=== PATIENT | female | born 1985 | race Caucasian/White ===

== ENCOUNTER → 2017-07-18 09:39 | Outpatient (CLI) | payer BC, MEDICAID, SELFPAY ==
[2017-07-18 11:14] LABS: AST(SGOT) 57 U/L (15-37); Alanine Aminotransfer ALT/SGPT 122 U/L (13-56); Albumin, Serum 2.2 g/dL (3.2-5.0); Alkaline Phosphatase 213 U/L (45-117); Bilirubin, Direct < 0.05 mg/dL (0.00-0.30); Globulin 4.2 g/dL (2.2-4.2); Protein, Total 6.4 g/dL (6.4-8.2)
== END ==
PROVIDERS: Visit Provider Obstetrics & Gynecology
DX: O26.893 Other specified pregnancy related conditions, third trimester (principal); L29.9 Pruritus, unspecified; Z3A.35 35 weeks gestation of pregnancy
CPT/HCPCS: 36415; 80076

== ENCOUNTER 2017-07-27 05:20 | Inpatient (IN) | payer BC, MEDICAID, SELFPAY ==
[2017-07-21 12:47] VITALS: BMI 36.1
[2017-07-27] VITALS (23 sets, daily range): BP systolic 101–132; BP diastolic 44–68; PULSE 72–92; RESP 12–18; TEMP 36.4–37.3; O2SAT 95–99; BMI 36.1
[2017-07-27] MEDS: Lactated Ringers 1,000 ML 999 ML IV (05:50)
[2017-07-27 06:39] LABS: Absolute Lymphocyte Count 2.36 X10^3/ul (0.83-4.51); Absolute Neutrophil Count 6.5 X10^3/uL (2.0-7.7); Basophil# 0.02 X10^3/uL; Basophil% 0.2 % (0-1); Eosinophil# 0.16 X10^3/uL; Eosinophils% 1.6 % (0-5); Hematocrit 32.4 % (37-47); Hemoglobin 10.3 g/dl (12.0-15.0); Lymphocyte # 2.36 X10^3/ul (4.0); Lymphocyte % 23.9 % (19-41); Mean Corp Hgb Conc 31.8 g/gl (32-36); Mean Corpuscular Hgb 24.8 pg (27.0-32.0); Mean Corpuscular Volume 78.1 fL (81-99); Mean Platelet Vol. 11.9 fl (6.2-12.0); Monocyte# 0.79 X10^3/uL; Platelet Count 268 K/mm3 (150-450); RBC Distribution Width CV 14.5 % (11.6-14.6); RBC Distribution Width SD 41.6 fl (35.1-43.9); Red Blood Count 4.15 M/mm3 (4.2-5.4); White Blood Count 9.9 K/mm3 (4.4-11.0)
[2017-07-27 06:40] LABS: POSITIVE COUNT NO; POSITIVE DIFFERENTIAL NO; POSITIVE MORPHOLOGY NO
[2017-07-27] MEDS: Sodium Citrate/Citric Acid 30 ML UDC PO (06:53)
[2017-07-27] MEDS: Lactated Ringers 1,000 ML 150 ML IV (06:53)
[2017-07-27] MEDS: Cefazolin 2 GM in 0.9% Normal Saline 100 ML IV (07:02)
[2017-07-27] MEDS: Oxytocin 30 units/NS 500 ml 30 UNITS/500 ML IV.SOLN 167 UNITS IV (07:40)
[2017-07-27] MEDS: Lactated Ringers 1,000 ML 100 ML IV ×2 (09:19→18:06)
[2017-07-27] MEDS: Ketorolac 30 MG/ML Syringe IV ×3 (12:38→23:40)
--- NOTE | 2017-07-27 13:53 | CPS ---
patient trying to sleep, does not want to start right now, instructed pt. on how to do and why
--- NOTE | 2017-07-27 14:10 | PCM.OP.BLANK ---
Operative Report Date of Procedure: 07/27/17 - repeat C/S 37 wk Cholestasis of PROCEDURE: Repeat C section Preoperative diagnosis: 37 wk EGA Prior C section deliveries Cholestasis of Postop diagnosis: 37 wk EGA Prior C section deliveries Cholestasis of Anesthesia: Spinal per Reese Holcomb CRNA Surgeon: Elodia Rodríguez MD Face Hardener: MANJU Cervantes EBL 600 cc Complications: none Drains: Mcdonough draining clear yellow urine Fluids: replacement LR Findings: At amniotomy, clear fluid was noted. Veliz viable male in vertex presentation with cord around neck x three, reduced at delivery . Apgars 9/9, Baby weight: 6# 4 oz There was a normal appearing uterus, fallopian tubes and ovaries bilaterally. Dense adhesions noted within layers of anterior abdominal wall. PATH: Cord gases Narrative account: After the risks, benefits and alternatives of the procedure were reviewed with the patient, informed consent was obtained. The patient was taken to the Operating room with an IV running . She was positioned on the operating table in a seated position and a spinal was placed. Once the spinal was placed she was positioned in dorsal supine position with leftward displacement of the uterus , and prepped and draped in the usual sterile fashion. Once the spinal was deemed adequate, a Pfannenstiel skin incision was created using the knife . The incision was carried down to the rectus fascia using the knife. The fascia was nicked in the midline. The fascial incision was extended bilaterally using curved Lisa scissors. The superior aspect of the fascial incision was grasped with Daniel clamps and tented up and the underlying rectus abdominal muscles were dissected free. In a similar manner, the inferior aspect of the facial incision was grasped with Daniel clamps tented up and the underlying rectus abdominal muscles were dissected free. The rectus abdominis muscles were divided by blunt dissection and sharp dissection in the midline by initially tenting up the muscle in the midline with Augustina clamps and then entering the peritoneum by sharp dissection. The rectus abdominis muscles and peritoneal incision were incised in the midline by Lisa scissors, and then stretched laterally and a bladder blade was inserted. A bladder flap was created with Metzenbaum scissors and the bladder blade was removed and reinserted. The uterine incision was then created using Metzenbaum scissors. The uterine incision was extended by blunt dissection in a caudad- cephalad orientation using the b operator's fingertips. Clear fluid was noted at amniotomy. The Vertex was then delivered. followed by the shoulders. The shoulders and rest of the body delivered easily. Nuchal cord x three was reduced at delivery. The OP and nares were bulb suctioned on the abdomen. The cord was clamped x two and cut and the baby was shown briefly to his parents and then passed off to the nurse awaiting delivery . The baby had a spontaneous vigorous cry and good tone . The umbilical cord was doubly clamped. The placenta was then delivered and set aside . The uterus was exteriorized and cleared of clots and debris . The uterine incision was repaired with 1 Vicryl in a running locked fashion. A second imbricating layer was placed along the incision using 1 Monocryl. Excellent hemostasis was noted except for some oozing at the R uterine angle. This area was oversewn with a horizontal mattress stitch of 1-0 vicryl. The uterus, fallopian tubes and ovaries were then inspected and returned to the abdominal cavity. The gutters were cleared of clots and debris. The uterine incision and fallopian tubes were again inspected. And excellent hemostasis was noted. Jose was applied to the uterine incision to assure continued hemostasis. The rectus abdominis and peritoneal edges were reapproximated in the midline with interrupted vertical mattress stitches of 1 Vicryl . Excellent hemostasis was noted at the subfascial space The fascia was closed in a running nonlocked fashion with barbed PDS suture (Stratafix). The Subcutaneous fatty tissue was Bovie cauterized as needed for hemostasis. This layer was then dusted with Jose and reapproximated with a nonlocked running 3-0 Vicryl. The skin edges were closed in a Subcuticular stitch of 4-0 Monocryl. The incision was cleansed. Seri-strips, and a Mepilex dressing were applied. The patient was then transferred to the recovery room bed in stable condition after tolerating the procedure well. Sponge, lap, needle and instrument counts correct times two. Medications given preop and intraoperatively included: Ancef two grams IV was given director of publications to the operating room. The patient also received Pitocin given IV after cord clamp, and Toradol 30 mg IV after cord clamp. For a complete listing of medications given preop and intraoperatively, please see the anesthesia record.
--- NOTE | 2017-07-27 14:19 | OP.PCM_ITS ---
Operative Report Date of Procedure: 07/27/17 - repeat C/S 37 wk Cholestasis of PROCEDURE: Repeat C section Preoperative diagnosis: 37 wk EGA Prior C section deliveries Cholestasis of Postop diagnosis: 37 wk EGA Prior C section deliveries Cholestasis of Anesthesia: Spinal per Reese Holcomb CRNA Surgeon: Elodia Rodríguez MD Candy Forming Machine Operator: MANJU Cervantes EBL 600 cc Complications: none Drains: Mcdonough draining clear yellow urine Fluids: replacement LR Findings: At amniotomy, clear fluid was noted. Veliz viable male in vertex presentation with cord around neck x three, reduced at delivery . Apgars 9/9, Baby weight: 6# 4 oz There was a normal appearing uterus, fallopian tubes and ovaries bilaterally. Dense adhesions noted within layers of anterior abdominal wall. PATH: Cord gases Narrative account: After the risks, benefits and alternatives of the procedure were reviewed with the patient, informed consent was obtained. The patient was taken to the Operating room with an IV running . She was positioned on the operating table in a seated position and a spinal was placed. Once the spinal was placed she was positioned in dorsal supine position with leftward displacement of the uterus , and prepped and draped in the usual sterile fashion. Once the spinal was deemed adequate, a Pfannenstiel skin incision was created using the knife . The incision was carried down to the rectus fascia using the knife. The fascia was nicked in the midline. The fascial incision was extended bilaterally using curved Lisa scissors. The superior aspect of the fascial incision was grasped with Dnaiel clamps and tented up and the underlying rectus abdominal muscles were dissected free. In a similar manner, the inferior aspect of the facial incision was grasped with Daniel clamps tented up and the underlying rectus abdominal muscles were dissected free. The rectus abdominis muscles were divided by blunt dissection and sharp dissection in the midline by initially tenting up the muscle in the midline with Augustina clamps and then entering the peritoneum by sharp dissection. The rectus abdominis muscles and peritoneal incision were incised in the midline by Lisa scissors, and then stretched laterally and a bladder blade was inserted. A bladder flap was created with Metzenbaum scissors and the bladder blade was removed and reinserted. The uterine incision was then created using Metzenbaum scissors. The uterine incision was extended by blunt dissection in a caudad- cephalad orientation using the extractor operator solvent process's fingertips. Clear fluid was noted at amniotomy. The Vertex was then delivered. followed by the shoulders. The shoulders and rest of the body delivered easily. Nuchal cord x three was reduced at delivery. The OP and nares were bulb suctioned on the abdomen. The cord was clamped x two and cut and the baby was shown briefly to his parents and then passed off to the nurse awaiting delivery . The baby had a spontaneous vigorous cry and good tone . The umbilical cord was doubly clamped. The placenta was then delivered and set aside . The uterus was exteriorized and cleared of clots and debris . The uterine incision was repaired with 1 Vicryl in a running locked fashion. A second imbricating layer was placed along the incision using 1 Monocryl. Excellent hemostasis was noted except for some oozing at the R uterine angle. This area was oversewn with a horizontal mattress stitch of 1-0 vicryl. The uterus, fallopian tubes and ovaries were then inspected and returned to the abdominal cavity. The gutters were cleared of clots and debris. The uterine incision and fallopian tubes were again inspected. And excellent hemostasis was noted. Jose was applied to the uterine incision to assure continued hemostasis. The rectus abdominis and peritoneal edges were reapproximated in the midline with interrupted vertical mattress stitches of 1 Vicryl . Excellent hemostasis was noted at the subfascial space The fascia was closed in a running nonlocked fashion with barbed PDS suture (Stratafix). The Subcutaneous fatty tissue was Bovie cauterized as needed for hemostasis. This layer was then dusted with Jose and reapproximated with a nonlocked running 3- 0 Vicryl. The skin edges were closed in a Subcuticular stitch of 4-0 Monocryl. The incision was cleansed. Seri-strips, and a Mepilex dressing were applied. The patient was then transferred to the recovery room bed in stable condition after tolerating the procedure well. Sponge, lap, needle and instrument counts correct times two. Medications given preop and intraoperatively included: Ancef two grams IV was given occupational safety specialist to the operating room. The patient also received Pitocin given IV after cord clamp, and Toradol 30 mg IV after cord clamp. For a complete listing of medications given preop and intraoperatively, please see the anesthesia record.
--- NOTE | 2017-07-27 14:19 | PCM.DCCSEC ---
Discharge Diet: No Restrictions Discharge Activity: May not drive while taking narcotic pain medications., May Shower, May Take a Tub Bath May resume sexual activity in: 4-6 weeks Lifting Restrictions: 20 pounds Additional Activity Instructions:: Nothing in the vagina for 4-6 weeks. You may return to work/school in 6 weeks. Change Dressing in (Days):: 14 Remove Dressing in (days):: 14 Cleanse incision/area with: Soap & Water, Keep Dressing Clean & Dry Additional Instructions: If you experience any of the following, contact your healthcare provider. Bleeding that soaks a pad every hour for 2 hours Fever 100.4 or higher Unrelieved incision or abdominal pain Swelling, redness, discharge or bleeding from your incision Problems urinating (including inability to urinate or burning while urinating). Visual changes Severe headache Flu-like symptoms Pain or redness in one of both of your breasts Pain, warmth, tenderness or swelling in your legs, especially the calf area Frequent nausea and vomiting Symptoms of depression or anxiety If you experience any of the following, call 911 or go to the nearest Emergency Room. Chest pain Problems breathing Seizure activity Partial or complete paralysis of a body part, slurred speech, weakness or drooping of the face, or a sudden inability to walk or hold your balance Allergies/Adverse Reactions: Allergies No Known Allergies Allergy (Verified 07/27/17 05:38) Medications to take at Discharge Naproxen [Naprosyn] 250 - 500 mg PO Q8H PRN PRN #30 tab 07/27/17 Oxycodone [Oxyir] 5 - 10 mg PO Q4H PRN PRN 7 Days #28 tab 07/27/17 Senna/Docusate Sodium [Senokot-S] 1 tab PO DAILY PRN #30 tab 07/27/17 The following prescriptions were given: Oxycodone [Oxyir] 5 - 10 mg PO Q4H PRN PRN 7 Days #28 tab PRN Reason: Mod-Severe Pain (4-10/10) Naproxen [Naprosyn] 250 - 500 mg PO Q8H PRN PRN #30 tab PRN Reason: Mild Pain (1-3/10) Senna/Docusate Sodium [Senokot-S] 1 tab PO DAILY PRN #30 tab PRN Reason: Constipation Orders to be completed after discharge: Electric breast pump Time Frame: 1 Year, Location: None Selected Follow-Up: Call to make an appointment with your doctor for an incision check in 1-2 weeks. You will also need a 6 week post- follow up appointment. Please Follow Up With: Gab Colon MD - [phone] When: Call to make an appointment for an incision check in 1 weeks.
--- NOTE | 2017-07-27 14:38 | DCINST_ITS ---
Discharge Diet: No Restrictions Discharge Activity: May not drive while taking narcotic pain medications., May Shower, May Take a Tub Bath May resume sexual activity in: 4-6 weeks Lifting Restrictions: 20 pounds Additional Activity Instructions:: Nothing in the vagina for 4-6 weeks. You may return to work/school in 6 weeks. Change Dressing in (Days):: 14 Remove Dressing in (days):: 14 Cleanse incision/area with: Soap & Water, Keep Dressing Clean & Dry Additional Instructions: If you experience any of the following, contact your healthcare provider. * Bleeding that soaks a pad every hour for 2 hours * Fever 100.4 or higher * Unrelieved incision or abdominal pain * Swelling, redness, discharge or bleeding from your incision * Problems urinating (including inability to urinate or burning while urinating) . * Visual changes * Severe headache * Flu-like symptoms * Pain or redness in one of both of your breasts * Pain, warmth, tenderness or swelling in your legs, especially the calf area * Frequent nausea and vomiting * Symptoms of depression or anxiety If you experience any of the following, call 911 or go to the nearest Emergency Room. * Chest pain * Problems breathing * Seizure activity * Partial or complete paralysis of a body part, slurred speech, weakness or drooping of the face, or a sudden inability to walk or hold your balance Allergies/Adverse Reactions: Allergies No Known Allergies Allergy (Verified 07/27/17 05:38) Medications to take at Discharge Naproxen [Naprosyn] 250 - 500 mg PO Q8H PRN PRN #30 tab 07/27/17 Oxycodone [Oxyir] 5 - 10 mg PO Q4H PRN PRN 7 Days #28 tab 07/27/17 Senna/Docusate Sodium [Senokot-S] 1 tab PO DAILY PRN #30 tab 07/27/17 The following prescriptions were given: Oxycodone [Oxyir] 5 - 10 mg PO Q4H PRN PRN 7 Days #28 tab PRN Reason: Mod-Severe Pain (4-1010) Naproxen [Naprosyn] 250 - 500 mg PO Q8H PRN PRN #30 tab PRN Reason: Mild Pain (1-3/10) Senna/Docusate Sodium [Senokot-S] 1 tab PO DAILY PRN #30 tab PRN Reason: Constipation Orders to be completed after discharge: Electric breast pump Time Frame: 1 Year, Location: None Selected Follow-Up: Call to make an appointment with your doctor for an incision check in 1-2 weeks. You will also need a 6 week post- follow up appointment. Please Follow Up With: Gab Colon MD - [phone] When: Call to make an appointment for an incision check in 1 weeks.
[2017-07-28] VITALS (7 sets, daily range): BP systolic 111–120; BP diastolic 44–58; PULSE 86–100; RESP 16–20; TEMP 36.9–37.4; O2SAT 96–97
[2017-07-28] MEDS: Ketorolac 30 MG/ML Syringe IV ×3 (05:40→18:46)
[2017-07-28 06:08] LABS: Hematocrit 31.1 % (37-47); Hemoglobin 9.6 g/dl (12.0-15.0); Mean Corp Hgb Conc 30.9 g/gl (32-36); Mean Corpuscular Hgb 24.2 pg (27.0-32.0); Mean Corpuscular Volume 78.5 fL (81-99); Mean Platelet Vol. 12.2 fl (6.2-12.0); Platelet Count 198 K/mm3 (150-450); RBC Distribution Width CV 14.6 % (11.6-14.6); RBC Distribution Width SD 40.6 fl (35.1-43.9); Red Blood Count 3.96 M/mm3 (4.2-5.4); Scan Indicated on CBC? Y/N NO; White Blood Count 8.9 K/mm3 (4.4-11.0)
--- NOTE | 2017-07-28 08:02 | PCM.PN.OB ---
Subjective: POD#1 Repeat C/S at 37 wk, cholestasis of Doing well. Breast feeding. breakfast tray waiting on her. Pain control adequate, but notes pain superior to medial aspect of R knee. SCDs in place. - Physical Exam General: Alert, Oriented x3, Cooperative, No apparent distress HEENT: Atraumatic Neck: Supple Abdomen: Soft - Fundus firm NT at 2-3 cm inferior to umblicus Extremities: No clubbing, No cyanosis, No edema - No redness noted at R knee, no edema. no palpable cords. minimally tender to palpation. Skin: Incision - Mepilex CDI. No shadow drainage. Neurological: Cranial nerves II-XII grossly intact Psych/Mental Status: Normal Affect Vital Signs Temp Pulse Resp BP Pulse Ox 99.2 F H 90 20 H 116/58 L 97 07/28/17 07:35 07/28/17 07:35 07/28/17 07:35 07/28/17 07:35 07/28/17 05:49 Oxygen Delivery Method Room Air Weight: 92.5 kg Body Mass Index (BMI) 36.1 Intake and Output for Last 24 Hours 02/18 //18 07/28/17 23:59 23:59 23:59 Intake Total 4258 / 4258 Output Total 2800 / 2800 550 / 550 Balance 1458 / 1458 -550 / -550 Laboratory Tests Past 24 Hrs 07/28/17 05:45 WBC 8.9 RBC 3.96 L Hgb 9.6 L Hct 31.1 L MCV 78.5 L MCH 24.2 L MCHC 30.9 L RDW 14.6 RDW Differential 40.6 Plt Count 198 MPV 12.2 H Assessment/Plan POD#1 Repeat C/S at 37 wk for cholestasis of . Stable postop. Inc diet and activity as tolerated. S/L IV for continued toradol. D/C ramirez for voiding trial Continue care L knee pain: not at all suspicious for DVT Musculoskeletal source likely. Heating pad, shower, tylenol, toradol prn for pain. Movement / stretching recommended also.
[2017-07-28] MEDS: 0.9% Saline Lock 10 ML Syringe IV ×3 (08:33→18:47)
[2017-07-28] MEDS: oxyCODONE 5 MG Tablet PO ×3 (09:12→22:17)
[2017-07-28] MEDS: Ferrous Sulfate 300 MG/5 ML UDC PO (13:17)
--- NOTE | 2017-07-28 20:52 | NURSING ---
Addendum entered by Claudia Rivers 07/28/17 20:54: Original Note: Addendum entered by Claudia Rivers 07/28/17 20:53: Original Note: reporting up to bathroom and voided numerous times but not measured
[2017-07-28] MEDS: Senna/Docusate Sodium 1 Tablet PO (22:17)
[2017-07-29] MEDS: Ketorolac 30 MG/ML Syringe IV ×2 (00:50→06:36)
[2017-07-29] MEDS: 0.9% Saline Lock 10 ML Syringe IV ×2 (00:53→06:35)
[2017-07-29 01:00] VITALS: BP 132/54; PULSE 84; RESP 18; TEMP 37.2
[2017-07-29] MEDS: oxyCODONE 5 MG Tablet PO (04:43)
--- NOTE | 2017-07-29 07:56 | PCM.PN.OB ---
Subjective: POD#2 Repeat C/S 37 wk Cholestasis of Doing well. wants to go home today. Milk not quite in, baby cluster fed last night. Pain control adequate. Up to shower yesterday, and OOB several times and tolerated well. - Physical Exam General: Alert, Oriented x3, Cooperative, No apparent distress HEENT: Atraumatic Neck: Supple Abdomen: Soft - Fundus firm NT at approx 2 cm inferior to umbilicus Skin: Incision - Mepilex CDI. no shadow drainage Vital Signs Temp Pulse Resp BP Pulse Ox 99.0 F 84 18 132/54 H 96 /07/17 01:00 07/29/17 01:00 07/29/17 01:00 07/29/17 01:00 07/28/17 19:52 Oxygen Delivery Method Room Air Weight: 92.5 kg Body Mass Index (BMI) 36.1 Intake and Output for Last 24 Hours 07/27/07/28/17 07/29/17 23:59 23:59 23:59 Intake Total 4258 / 4258 939 / 939 Output Total 2800 / 2800 1950 / 1950 Balance 1458 / 1458 -1011 / -1011 Assessment/Plan POD#2 Repeat C/S at 37 wk for cholestasis of . Stable postop. D/C home today per pt request. RTO as scheduled for postop check.
--- NOTE | 2017-07-29 07:59 | PCM.DC.SUM ---
Discharge Date and Diagnosis Date of Admission: 07/27/17 - 37 wk prior C/S planned repeat, cholestasis of Date of Discharge: 07/29/17 - same Hospital Course and Treatment Operations: - - Repeat LTCS Summary of Care Provided: The patient is a 31 year old F with h/o prior C/S delivery presents at 37 wk for repeat C/S due to cholestasis of . Also with iron deficiency anemia. Admitted for repeat C/S. C/S performed on 07/27/17. uncomplicated. Postop course uneventful. Acute blood loss anemia superimposed on iron deficiency anemia. Discharged home POD#2 per pt request. Discharge Diet: No Restrictions Discharge Activity: May not drive while taking narcotic pain medications., May Shower, May Take a Tub Bath May resume sexual activity in: 4-6 weeks Additional Activity Instructions:: Nothing in the vagina for 4-6 weeks. You may return to work/school in 6 weeks. Change Dressing in (Days):: 14 Remove Dressing in (days):: 14 Cleanse incision/area with: Soap & Water, Keep Dressing Clean & Dry Home Medications: Medications to take at Discharge Naproxen [Naprosyn] 250 - 500 mg PO Q8H PRN PRN #30 tab 07/27/17 Oxycodone [Oxyir] 5 - 10 mg PO Q4H PRN PRN 7 Days #28 tab 07/27/17 Senna/Docusate Sodium [Senokot-S] 1 tab PO DAILY PRN #30 tab 07/27/17 Following Prescrptions Were Given to Patient: Oxycodone [Oxyir] 5 - 10 mg PO Q4H PRN PRN 7 Days #28 tab PRN Reason: Mod-Severe Pain (4-10/10) Naproxen [Naprosyn] 250 - 500 mg PO Q8H PRN PRN #30 tab PRN Reason: Mild Pain (1-3/10) Senna/Docusate Sodium [Senokot-S] 1 tab PO DAILY PRN #30 tab PRN Reason: Constipation Other Amb Orders: Electric breast pump Time Frame: 1 Year, Location: None Selected Please Follow Up With: Gab Colon MD - [phone] When: Call to make an appointment for an incision check in 1 weeks. Meaningful Use Info Meaningful Use Diagnoses (Choose all that apply): None applicable
[2017-07-29 08:31] VITALS: BP 117/66; PULSE 92; RESP 16; TEMP 37.1
[2017-07-29] MEDS: Ferrous Sulfate 300 MG/5 ML UDC PO (09:32)
[2017-07-29] MEDS: Multivitamins,Therapeutic Tablet 1 TABLET PO (09:32)
== END 2017-07-29 12:00 | disposition home or self-care (01) | DRG 765 ==
PROVIDERS: Obstetrics & Gynecology; Admitting Provider Obstetrics & Gynecology; Visit Provider Obstetrics & Gynecology
DX: O26.62 Liver and biliary tract disorders in childbirth (principal); K83.1 Obstruction of bile duct; D62 Acute posthemorrhagic anemia; O99.02 Anemia complicating childbirth; O69.81X0 Labor and delivery complicated by cord around neck, without compression, not applicable or unspecified; Z3A.37 37 weeks gestation of pregnancy; Z37.0 Single live birth; D50.9 Iron deficiency anemia, unspecified; O34.219 Maternal care for unspecified type scar from previous cesarean delivery; O90.89 Other complications of the puerperium, not elsewhere classified; M25.562 Pain in left knee
CPT/HCPCS: 59050; 85025; 85027; 85610; 85730; 86850; 86900; 94762; 99218; J7120; A4216; G0378; J2405

== ENCOUNTER → 2019-06-06 16:29 | Outpatient (CLI) | payer MEDICAID, SELFPAY ==
[2017-07-27 05:40] VITALS: BMI 36.1
== END ==
PROVIDERS: Visit Provider Advanced Practice Midwife
DX: Z12.4 Encounter for screening for malignant neoplasm of cervix (principal); Z11.3 Encounter for screening for infections with a predominantly sexual mode of transmission

== ENCOUNTER → 2019-06-08 08:49 | Outpatient (CLI) | payer MEDICAID, SELFPAY ==
[2019-06-08 10:57] LABS: Absolute Lymphocyte Count 1.47 X10^3/uL (0.83-4.51); Basophil# 0.03 X10^3/uL; Basophil% 0.4 % (0-1); Color, Urine Yellow (Yellow); Eosinophil# 0.63 X10^3/uL; Eosinophils% 8.3 % (0-5); Glucose, Dipstick Normal (Normal); Hematocrit 40.7 % (37-47); Hemoglobin 13.4 g/dL (12.0-15.0); Ketone-Dipstick Negative (Negative); Leukocyte Esterase-Dipstick 25 /ul (Negative); Lymphocyte # 1.47 X10^3/ul (4.0); Lymphocyte % 19.4 % (19-41); Mean Corp Hgb Conc 32.9 g/dL (32-36); Mean Corpuscular Hgb 28.9 pg (27.0-32.0); Mean Corpuscular Volume 87.9 fL (81-99); Mean Platelet Vol. 10.8 fl (6.2-12.0); Monocyte# 0.39 X10^3/uL; Monocyte% 5.1 % (0-10); NRBC Flagged by Analyzer 0 % (0-5); Neutrophil # 5.04 X10^3/uL (2.7-7.7); Neutrophil % 66.4 % (47-70); Nitrite-Dipstick Negative (Negative); Occult Blood-Urine 10 /ul (Negative); Platelet Count 304 K/mm3 (150-450); Protein-Dipstick Negative (Negative); RBC Distribution Width CV 13.3 % (11.6-14.6); RBC Distribution Width SD 43.1 fl (35.1-43.9); Red Blood Count 4.63 M/mm3 (4.2-5.4); Urine Bilirubin Dipstick Negative (Negative); Urine Clarity Clear (Clear); Urine Urobilinogen Normal (Normal); White Blood Count 7.6 K/mm3 (4.4-11.0)
[2019-06-08 11:22] LABS: Amphetamine Urine VISTA NEGATIVE (<1000 ng/mL); Barbiturate Urine VISTA NEGATIVE (< 200 ng/mL); Benzodiazepine Urine VISTA NEGATIVE (< 200 ng/mL); Cocaine Urine VISTA NEGATIVE (< 300 ng/mL); Ecstacy Urine VISTA NEGATIVE (< 500 ng/mL); Methadone Urine VISTA NEGATIVE (< 300 ng/mL); PCP Urine VISTA NEGATIVE (< 25 ng/mL); THC Urine VISTA NEGATIVE (< 50 ng/mL); Vista UDS pH Range 5
[2019-06-08 11:30] LABS: Glucose Challenge Gest 1H 50g 87 mg/dL (70-140); Thyroid Stim Hormone (TSH) 0.56 uIU/mL (0.358-3.74)
[2019-06-08 11:57] LABS: HIV - WCH Non-Reactive (Nonreactive); Hepatitis B Surface Antigen Non-Reactive (Nonreactive); Hepatitis C Antibody Non-Reactive (Nonreactive); Rubella IgG 49.5 IU/mL
[2019-06-14 02:55] LABS: Prenatal RPR NONREACTIVE (NONREACTIVE)
== END ==
PROVIDERS: Visit Provider Advanced Practice Midwife
DX: Z34.81 Encounter for supervision of other normal pregnancy, first trimester (principal)
CPT/HCPCS: 36415; 80307; 81002; 82950; 84443; 85025; 86703; 86762; 86803; 87340

== ENCOUNTER → 2019-10-18 10:30 | Outpatient (CLI) | payer MEDICAID, SELFPAY ==
[2019-10-18 12:23] LABS: Glucose Challenge Gest 1H 50g 117 mg/dL (70-140)
[2019-10-18 12:29] LABS: Hematocrit 36.8 % (37-47); Hemoglobin 11.7 g/dL (12.0-15.0); Mean Corp Hgb Conc 31.8 g/dL (32-36); Mean Corpuscular Hgb 27.7 pg (27.0-32.0); Mean Corpuscular Volume 87.2 fL (81-99); Mean Platelet Vol. 11.6 fl (6.2-12.0); Platelet Count 316 K/mm3 (150-450); RBC Distribution Width CV 12.8 % (11.6-14.6); RBC Distribution Width SD 40.3 fl (35.1-43.9); Red Blood Count 4.22 M/mm3 (4.2-5.4); White Blood Count 8.3 K/mm3 (4.4-11.0)
== END ==
PROVIDERS: Visit Provider Obstetrics & Gynecology
DX: Z34.83 Encounter for supervision of other normal pregnancy, third trimester (principal)
CPT/HCPCS: 36415; 82950; 85027

== ENCOUNTER 2019-12-09 12:15 | Outpatient (CLI) | payer MEDICAID, SELFPAY ==
[2019-12-09 13:20] VITALS: BMI 36.8
[2019-12-09 13:45] VITALS: BP 120/68; PULSE 96; TEMP 36.9
[2019-12-09 14:34] LABS: AST(SGOT) 110 U/L (15-37); Alanine Aminotransfer ALT/SGPT 234 U/L (13-56); Albumin, Serum 2.1 g/dL (3.2-5.0); Alkaline Phosphatase 237 U/L (45-117); Bilirubin, Direct 0.14 mg/dL (0.00-0.30); Globulin 4.3 g/dL (2.2-4.2); Protein, Total 6.4 g/dL (6.4-8.2)
--- NOTE | 2019-12-09 14:51 | PN_ITS ---
Progress Note OB TRIAGE PHYSICIAN NOTE - Problem List (1) 35 weeks gestation of Status: Acute History of Present Illness Date of Service: 12/09/19 Was patient seen by the physician?: Yes Reason For Visit: RULE OUT CHOLESTASIS Final DAMARIS: 01/08/20 Final DAMARIS Source: US <20 weeks Gestational age: 35 Weeks and 5 Days History of Present Illness: 33yo at 35 5/7 weeks gestation sent in by triage phone nurse for c/o itching. Patient notes itching on hands, soles of feet and abdomen x 3 days. She has history of cholestasis during her last . Allergies No Known Allergies Allergy (Verified 07/27/17 05:38) - Pertinent Past Medical History Surgical History: Past Surgical History (Last Updated 12/09/19 @ 13:[address] Maria Alejandra Ling MD) Previous section 2011, 2012, 2016, 2017 Pertinent Past Medical History: DEL DATE GEST LAB WT LB WT OZ TYPE ANES LABOR TX OR COMPLICATIONS 05 Feb 02 40 20 7 1 VAVD Epidural No Julio Cesar Feb 03 41 8 7 0 Vag Epidural No Gweneviere Jan 05 40 8 7 0 Vag Epidural No Efrain Apr 08 40 8 6 14 Vag Epidural No, 2vc Sara Dec 08 40 0 8 0 C-Sec Epidural No, distress Sincere Feb 09 39 0 7 2 C-Sec Epidural No Floridalma Jul 16 39 0 6 0 C-Sec Spinal No Raziela Jul 17 36 0 6 15 C-Sec Spinal No Hang ANTEPARTUM FLOW CHART VISIT GE RTC FU F F MA U U DATE WK WKS HT PN HR M SS BP ED WT MA GL D EF ST __ ____ ___ __ __ ___ __ __ __ ___ __ __ __ ___ __ Oct CH 3 36 V + + 114/86 sl 205 tr - Oct CH 2 31 + + 110/80 sl 204 tr - October 24 JMW 3 28 + + 118/76 0 202 - - Sep 21 CH 3 + / 200 Sep 17 CH 4 on + 130/82 sl 200 tr - Jul 18 CH 2 + + 102/74 sl 197 - - Jun 14 KW 4 on ? 122/64 0 198 - - May 0 KW 4 on 100/60 0 192 - - labs: 1h GTT 117, RPR nr, HCV Ab neg, HBsAg neg, HIV nr, Rubella immune, O positive, Utox neg Review of Systems Constitutional: Denies: Chills, Fever, Fatigue Eyes: Denies: Vision Change HEENT: Denies: Head Aches, Visual Changes Cardiovascular: Denies: Chest Pain Respiratory: Denies: Shortness of Breath Gastrointestinal: Denies: Abdominal Pain, Nausea, Vomiting Gynecological: Reports: - - Good movement, rare contractions, denies leaking of fluid or vaginal bleeding Skin: Reports: Pruritis. Denies: Jaundice, Rash Neurological: Denies: Blurred vision, Double vision, Headaches Physical Exam Vitals: AVSS General: Alert, Oriented x3, Cooperative, No apparent distress HEENT: Atraumatic, Normocephalic, - - Anicteric Cardiovascular: Regular rate, Regular Rhythm, Normal S1, Normal S2 Lungs: Clear to auscultation, Normal air movement Abdomen: Soft, Non Tender, Non-Distended, Gravid Extremities:: No edema, No tenderness/swelling Neurological: Deep Tendon Reflexes 2+/4 and Symmetrical, Neuro grossly intact Estimated gestational size: Appropriate for gestational size Presentation: Cephalic NST - FHR Rate Baby A Baseline: 150 Variability:: Moderate Accelerations:: 15 x 15 Decelerations:: None NST Reactive:: Yes FHR Category:: Category I Uterine Activity:: 0-06/08 Impression/Plan 33YO at 35 5/7 weeks gestation with c/o itching, Cat I FHR -LFTs, bile acid fractionation profile Office Visits / Consults: [id number] OV L3 New STROKE Vital Signs/Narrative: Vital Signs Temp Pulse BP 12/09/19 13:45 98.4 F 96 120/68
--- NOTE | 2019-12-09 14:53 | OB.TRI.PN ---
Progress Notes Date of Service: 12/09/19 Progress Note: LFTs elevated, reviewed with patient findings and likely cholestasis. Rx Ursodiol. OTC Benadryl prn itching. Reviewed associated risk for stillbirth associated with increasing levels of bile acids. Await levels to determine delivery plan. Plan for twice weekly monitoring in interim. Discussed movement counts and si/sx requiring further attention. Patient and spouse given opportunity to ask questions and questions answered to their satisfaction. Laboratory Studies: Laboratory Tests 12/09/19 Range/Units 13:40 Total Bilirubin 0.20 (0.20-1.00) mg/dL Direct Bilirubin 0.14 (0.00-0.30) mg/dL AST 110 H (15-37) U/L ALT 234 H (13-56) U/L Alkaline Phosphatase 237 H (45-117) U/L Total Protein 6.4 (6.4-8.2) g/dL Albumin 2.1 L (3.2-5.0) g/dL Globulin 4.3 H (2.2-4.2) g/dL
== END 2019-12-09 15:10 | disposition home or self-care (01) ==
LOC: WPOUT 12:50 → WP 12:53
PROVIDERS: Visit Provider Obstetrics & Gynecology
DX: O26.893 Other specified pregnancy related conditions, third trimester (principal); L29.9 Pruritus, unspecified; Z3A.35 35 weeks gestation of pregnancy
CPT/HCPCS: 36415; 59025; 59050; 80076; 99218; G0378

== ENCOUNTER → 2019-12-13 17:28 | Outpatient (CLI) | payer MEDICAID, SELFPAY ==
[2019-12-09 13:20] VITALS: BMI 36.8
== END ==
PROVIDERS: Referring Provider Obstetrics & Gynecology; Visit Provider Obstetrics & Gynecology
DX: Z36.85 Encounter for antenatal screening for Streptococcus B (principal)
CPT/HCPCS: 87081

== ENCOUNTER 2019-12-19 18:45 | Inpatient (IN) | payer MEDICAID, SELFPAY ==
[2019-12-19] VITALS (13 sets, daily range): BP systolic 102–141; BP diastolic 57–78; PULSE 74–97; RESP 16–18; TEMP 36.4–37.1; O2SAT 95–99; BMI 37.2
[2019-12-19 18:40] LABS: ROM Internal Control Test YES-OK TO RESULT pt. (Internal QC)
[2019-12-19 18:41] LABS: ROM Patient Test POSITIVE (Negative)
--- NOTE | 2019-12-19 19:08 | HP.PCM_ITS ---
- Problem List (1) 37 weeks gestation of Status: Acute (2) Grand multipara Status: Acute (3) Advanced maternal age (AMA) in Status: Acute History Date of Admission: 12/19/19 Final DAMARIS: 01/08/20 Final DAMARIS Source: US <20 weeks Gestational age: 37 Weeks and 2 Days History of this : This is a 34 year-old, G [9], P [8], at 37 weeks gestational age. Surgical History: Surgical History (Last Updated 12/09/19 @ 13:[address] Maria Alejandra Ling MD) Previous section Z98.891 2011, 2012, 2016, 2017 Allergies No Known Allergies Allergy (Verified 12/19/19 18:21) Home Medications: Home Medications DiphenhydrAMINE [Benadryl] 1 - 2 tab PO PRN PRN 12/09/19 Pnv No.95/Ferrous Fum/Folic AC [ Caplet] 1 ea PO DAILY 12/09/19 Ursodiol 300 mg PO TID #90 cap 12/09/19 Oxycodone [Oxyfast] 5 mg PO Q4H PRN PRN 7 Days #10 ml 12/19/19 Smoking Status: Never smoker Alcohol: None Number of Fetus(es): 1 NST - FHR Rate Baby A Baseline: 140 Variability:: Moderate Accelerations:: 15 x 15 Decelerations:: None NST Reactive:: Yes FHR Category:: Category I Uterine Activity:: 2-4 History Past Pregnancies: PRIOR DELIVERY HISTORY DEL DATE GEST LAB WT LB WT OZ TYPE ANES LABOR TX 05 Feb 02 40 20 7 1 Vag Epidural No Jan 13 39 0 7 2 C-Sec Epidural No Jan 05 40 8 7 0 Vag Epidural No Apr 08 40 8 6 14 Vag Epidural No Jun 17 39 0 6 0 C-Sec Spinal No Dec 08 40 0 8 0 C-Sec Epidural No Feb 03 41 8 7 0 Vag Epidural No b 18 36 0 6 15 C-Sec Spinal No Labs: Mom's Labs & Results 12/19/19 18:17 Vag Amniotic Fld Detect POSITIVE H Social History Alleged father Gaston Hx Smoking No Smoking Status Never smoker Labs 12/19/19 19:12 WBC 10.1 RBC 4.79 Hgb 12.5 Hct 39.5 MCV 82.5 MCH 26.1 L MCHC 31.6 L RDW Std Deviation 40.8 RDW Coeff of Charisse 13.8 Plt Count 242 MPV 12.9 H Immature Gran % (Auto) 0.400 Neut % (Auto) 75.3 H Lymph % (Auto) 19.4 [place] % (Auto) 4.3 Eos % (Auto) 0.3 Baso % (Auto) 0.3 Absolute Neuts (auto) 7.6 Absolute Lymphs (auto) 1.96 Nucleated RBC % 0 Platelet Estimate ADEQUATE RBC Morphology NORM C+C [place] Cells 3+ Expected Infant Delivery Method: Repeat Section Number of Visits: 10 Review of Systems Constitutional: Denies: Chills, Fever, Weight Change HEENT: Denies: Head Aches, Sinus Congestion, Sinus Drainage Cardiovascular: Denies: Chest Pain, Palpitations Respiratory: Denies: Cough, Shortness of breath at rest, Sputum production Gastrointestinal: Denies: Abdominal Pain, Nausea, Vomiting Genitourinary: Denies: Dysuria Musculoskeletal: Denies: Joint Pain, Joint Tenderness Skin: Denies: Rash, Wounds Neurological: Denies: Numbness, Tingling, Focal weakness Psychiatric: Denies: Anxiety, Depression, Homicidal Ideations, Suicidal Ideations Hematologic/ Lymphatic: Denies: Easy Bruising, Easy Bleeding Physical Exam Vitals: Vital Signs Temp Pulse BP 98.7 F 96 141/72 H 12/19/19 18:21 12/19/19 18:21 12/19/19 18:21 General: Alert, Oriented x3, No apparent distress HEENT: Atraumatic, Normocephalic. Negative for: Thyromegaly, Lymphadenopathy Cardiovascular: Regular rate, Regular Rhythm Lungs: Clear to auscultation Abdomen: Bowel Sounds Present, Gravid Neurological: Deep Tendon Reflexes 2+/4 and Symmetrical, Neuro grossly intact POCKET CLOSER: Normal external genitalia. Negative for: Vulvar lesions Estimated gestational size: Appropriate for gestational size Presentation: Cephalic Cervix Dilation (cm): 0 Station: -2 Effacement (%): 0 Assessment/Plan All Active Problems Previous delivery, delivered (Acute) 35 weeks gestation of (Acute) 37 weeks gestation of (Acute) Grand multipara (Acute) Advanced maternal age (AMA) in (Acute) A/P: This is a 34 year-old, G [9], P [8], at 37 weeks gestational age. Grandmultip Advanced maternal age SROM 1630, clear Renetta of , controlled with oral medication Planned repeat Csection, Dr. Castro made aware of patients arrival Csection arranged for 1999 this evening Procedure Criteria Procedure Type: Elective COVID Risk Discussion: The surgeon/proceduralist and patient have discussed in detail the risk of exposure to and/or potential harm posed by the COVID-19 virus with having a surgery/procedure at this time versus the risk of delaying the surgery/procedure. It is not possible to know either the risk of delaying the surgery or procedure or chance of getting an infection with perfect accuracy, but a joint decision was made between the patient and the surgeon/proceduralist to proceed at this time with the scheduled surgery/procedure as indicated on the consent form.
[2019-12-19] MEDS: Lactated Ringers 1,000 ML 999 ML IV (19:12)
[2019-12-19 19:22] LABS: Absolute Lymphocyte Count 1.96 X10^3/uL (0.83-4.51); Absolute Neutrophil Count 7.6 X10^3/uL (2.0-7.7); Basophil# 0.03 X10^3/uL; Basophil% 0.3 % (0-1); Eosinophil# 0.03 X10^3/uL; Eosinophils% 0.3 % (0-5); Hematocrit 39.5 % (37-47); Hemoglobin 12.5 g/dL (12.0-15.0); Lymphocyte # 1.96 X10^3/ul (4.0); Lymphocyte % 19.4 % (19-41); Mean Corp Hgb Conc 31.6 g/dL (32-36); Mean Corpuscular Hgb 26.1 pg (27.0-32.0); Mean Corpuscular Volume 82.5 fL (81-99); Mean Platelet Vol. 12.9 fl (6.2-12.0); Monocyte# 0.43 X10^3/uL; Monocyte% 4.3 % (0-10); NRBC Flagged by Analyzer 0 % (0-5); Neutrophil # 7.61 X10^3/uL (2.7-7.7); Neutrophil % 75.3 % (47-70); POSITIVE MORPHOLOGY YES; Platelet Count 242 K/mm3 (150-450); RBC Distribution Width CV 13.8 % (11.6-14.6); RBC Distribution Width SD 40.8 fl (35.1-43.9); Red Blood Count 4.79 M/mm3 (4.2-5.4); White Blood Count 10.1 K/mm3 (4.4-11.0)
[2019-12-19 19:39] LABS: Differential Indicated SCAN CRITERIA MET
[2019-12-19 19:40] LABS: Burr Cells 3+; Platelet Estimate ADEQUATE (ADEQ); Red Cell Morphology NORM C+C NORMAL (NORM C&C)
[2019-12-19] MEDS: Sodium Citrate/Citric Acid 30 ML UDC PO (19:58)
[2019-12-19] MEDS: Acetaminophen 650 MG/20 ML UDC 1000 MG PO (20:00)
[2019-12-19] MEDS: Cefazolin 2 GM in 0.9% Normal Saline 100 ML IV (20:15)
--- NOTE | 2019-12-19 20:18 | OP.PCM_ITS ---
Delivery Classification: GUICHO Final DAMARIS: 01/08/20 Final DAMARIS Source: US <20 weeks Gestational age: 37 Weeks and 1 Days community action worker: Shantel Jarvis Type of Anesthesia:: Spinal - With Duramorph Date of Procedure: 12/19/19 Pre-Operative Diagnosis: Premature Rupture of Membranes, Prior Section Post-Operative Diagnosis: Premature Rupture of Membranes, Prior Section Description of Procedure: Surgeon: Franco Castro MD, FACOG Anesthesia: Jose Cruz Edwards MD Procedure: Repeat Low Transverse Cervical Caesarean Section Findings: Viable female infant with Apgars of 8/9 in occiput anterior presentation with clear amniotic fluid and normal three-vessel placenta. Indication: This is a 34-year-old who presents for her fifth at 37+ weeks gestation after presenting to labor and delivery with spontaneous rupture of membranes at home. care has otherwise been uneventful. The patient has been counseled regarding the risk and indications of this procedure including the possibility of bleeding infection and injury to surrounding structures such as bowel bladder. All questions were answered. Procedure: Patient was taken to the operating room where after spinal anesthesia was placed, the patient was prepped and draped in usual sterile fashion and a Mcdonough catheter was placed. The abdomen was entered through the patient's prior Pfannenstiel incision and peritoneum was entered bluntly. After developing a bladder flap on the lower uterine segment a low transverse incision was made on the uterus and head was easily delivered onto the operative field the nose mouth and oropharynx were bulb suctioned. Subsequently a viable female infant was born with Apgars of 8/9. The was noted to cry move all extremities vigorously on the operative field. The umbilical cord was doubly clamped and ligated and infant handed to the nursery personnel who were present for the delivery. Placenta was delivered and noted to be 3 vessels and normal. Uterus was exteriorized and remaining placental tissue was removed. The uterus was then closed in 2 layers first with running locked 0 Vicryl suture followed by a second imbricating layer with 0 Vicryl suture. 0 Vicryl suture was then used in a horizontal mattress interrupted fashion to affect final hemostasis of the uterine incision line. Normal fallopian tubes and ovaries were visualized and the uterus was returned to the pelvis. Hemostasis was noted and rectus abdominis muscles were reapproximated in the midline with interrupted Number 0 Vicryl suture in a horizontal mattress fashion. Fascia was closed with running Number 1 PDS Strata fix suture. Subcutaneous tissue was irrigated with copious amounts of saline solution and then closed with running 3-0 Vicryl suture in 2 layers. Skin was closed with 4-0 monocryl suture in a running subcuticular fashion. Steri strips and a Mepilex dressing were placed across the incision. The patient tolerated the procedure well and was taken to the recovery room in satisfactory condition. Sponge, needle, and instrument counts were all report edly correct. EBL was less than 500 cc. Ancef 2 gms IV was given prior to the procedure. Specimen to Pathology: None Complications: None Amniotic Membrane Rupture Type: Spontaneous Amniotic Fluid Description: Clear Placenta Disposition: [facility] Specimen(s) sent to pathology: None Drain: Mcdonough to straight drain Fluids Replaced: Crystalloid Cord Entanglement: Around neck x 2, tight Cord Vessel Description: 3 Vessels Esitmated Blood Loss (ml): 500 cc Gender: Female (1 minute): 8 (5 minute): 9 Antibiotic Given: Ancef 2 grams IV x1 Pt instructed on risks of surgery: Bleeding, Infection, Injury to surrounding structure(s) including bowel and bladder - Admit VTE Documentation VTE Present on Admission: Yes VTE Mechan Device Prophylaxis: SCD's VTE Pharm Prophylaxis ordered?: Yes
--- NOTE | 2019-12-19 20:23 | DCINST_ITS ---
Discharge Diet: No Restrictions Discharge Activity: May not drive while taking narcotic pain medications., May Shower, May Take a Tub Bath May resume sexual activity in: 4-6 weeks Lifting Restrictions: 20 pounds Additional Activity Instructions:: Nothing in the vagina for 4-6 weeks. You may return to work/school in 6 weeks. Call your doctor if your incision/area has: Continuous Slow Oozing, Sudden Increased Bleeding, Increased Pain/ Swelling, Increased Redness, Foul Smelling Discharge Call your doctor if you observe: Fever of 101 or Higher, Inability to urinate, Inability to have a bowel movement, Using more than one pad per hour Additional Instructions: If you experience any of the following, contact your healthcare provider. * Bleeding that soaks a pad every hour for 2 hours * Fever 100.4 or higher * Unrelieved incision or abdominal pain * Swelling, redness, discharge or bleeding from your incision or episiotomy site * Your incision begins to separate * Problems urinating (including inability to urinate or burning while urinating). * Visual changes * Severe headache * Flu-like symptoms * Pain or redness in one of both of your breasts * Pain, warmth, tenderness or swelling in your legs, especially the calf area * Frequent nausea and vomiting * Symptoms of depression or anxiety If you experience any of the following, call 911 or go to the nearest Emergency Room. * Chest pain * Problems breathing * Seizure activity * Partial or complete paralysis of a body part, slurred speech, weakness or drooping of the face, or a sudden inability to walk or hold your balance Allergies/Adverse Reactions: Allergies No Known Allergies Allergy (Verified 12/19/19 18:21) Medications to take at Discharge DiphenhydrAMINE [Benadryl] 1 - 2 tab PO PRN PRN 12/09/19 Pnv No.95/Ferrous Fum/Folic AC [ Caplet] 1 ea PO DAILY 12/09/19 Ursodiol 300 mg PO TID #90 cap 12/09/19 Oxycodone [Oxyfast] 5 mg PO Q4H PRN PRN 7 Days #10 ml 12/19/19 The following prescriptions were given: Oxycodone [Oxyfast] 5 mg PO Q4H PRN PRN 7 Days #10 ml PRN Reason: Pain Score 6-03/08 Transmission Status: Received by [facility]/pharmacy #[id number] Follow-Up: Call to make an appointment with your doctor for an incision check in 1-2 weeks. You will also need a 6 week post- follow up appointment. Test results from this visit will be discussed in further detail at your follow- up appointment, if applicable. Please Follow Up With: Franco Castro MD - [phone] When: Call to make an appointment for an incision check in 2 weeks. Primary Care Physician: Care Physician,No Primary [Primary Care Provider] -
[2019-12-19] MEDS: Oxytocin 30 units/NS 500 ml 30 UNITS/500 ML IV.SOLN 167 UNITS IV (21:58)
--- NOTE | 2019-12-19 23:40 | NURSING ---
Pharmacy called, pt unable to swallow pills. Ursodiol able to be crushed and given to pt.
[2019-12-20] VITALS (11 sets, daily range): BP systolic 92–123; BP diastolic 46–63; PULSE 73–89; RESP 14–18; TEMP 36.4–36.8; O2SAT 98–100
[2019-12-20] MEDS: Ursodiol 250 MG Tablet PO ×4 (00:13→22:23)
--- NOTE | 2019-12-20 00:30 | NURSING ---
Report given to Shira BRUCE, taking over pt and care at this time.
--- NOTE | 2019-12-20 01:40 | NURSING ---
pt has indwelling urinary catheter
[2019-12-20] MEDS: Lactated Ringers 1,000 ML 100 ML IV (02:10)
[2019-12-20] MEDS: Acetaminophen 650 MG/20 ML UDC 1000 MG PO ×4 (02:30→20:44)
[2019-12-20] MEDS: Ketorolac 30 MG/ML Syringe IV ×4 (03:24→21:06)
[2019-12-20] MEDS: Cefazolin 1 GM/50 ML BAG IV ×2 (03:30→11:03)
[2019-12-20 06:14] LABS: Hematocrit 29.9 % (37-47); Hemoglobin 9.6 g/dL (12.0-15.0); Mean Corp Hgb Conc 32.1 g/dL (32-36); Mean Corpuscular Hgb 26.7 pg (27.0-32.0); Mean Corpuscular Volume 83.3 fL (81-99); Mean Platelet Vol. 13.3 fl (6.2-12.0); Platelet Count 171 K/mm3 (150-450); RBC Distribution Width CV 13.7 % (11.6-14.6); RBC Distribution Width SD 41.6 fl (35.1-43.9); Red Blood Count 3.59 M/mm3 (4.2-5.4); White Blood Count 8.6 K/mm3 (4.4-11.0)
--- NOTE | 2019-12-20 08:56 | PN.OBGYN_ITS ---
Patient Problems: Active and Suspected Problems 37 weeks gestation of (Acute) Grand multipara (Acute) Advanced maternal age (AMA) in (Acute) Subjective: Reports being very tired. Has not been out of bed yet. Ramirez is still in and pain being well managed with IV pain medication. Objective: VSS. Patient has not yet ambulated, urinated or passed flatus. Tolerating regular diet. Pain well controlled. Surgical dressing CDI. - Physical Exam Vitals/I&O's: Vital Signs Temp Pulse Resp BP Pulse Ox 98.0 F 76 16 112/63 98 12/20/19 07:50 12/20/19 07:50 12/20/19 07:50 12/20/19 07:50 12/20/19 07:50 Oxygen Delivery Method Room Air Weight: 95.254 kg Body Mass Index (BMI) 37.2 Intake and Output for Last 24 Hours 12/18/19 12/19/19 12/20/19 23:59 23:59 23:59 Intake Total 2610 / 2610 550 / 550 Output Total 100 / 100 1100 / 1100 Balance 2510 / 2510 -550 / -550 General: Alert, Oriented x3, Cooperative HEENT: Atraumatic, PERRLA, EOMI, Normocephalic Neck: Supple, No JVD, Negative Carotid Bruits Lungs: Clear to auscultation, Normal air movement Cardiovascular: Regular rate, No murmurs Abdomen: Bowel Sounds Present, Soft, Non Tender Extremities: No edema, Capillary Refill Less than 3 Seconds Skin: No rashes, No breakdown, Incision - abdominal surgical dressing CDI Musculoskeletal: No Tenderness to Palpation of Joints or Extremities Neurological: Cranial nerves II-XII grossly intact Psych/Mental Status: Normal Affect, Appropriate Laboratory Results 12/19/19 18:17: Vag Amniotic Fld Detect POSITIVE H 12/19/19 19:05: COVID-19 ([facility]) Negative 12/19/19 19:12: WBC 10.1, RBC 4.79, Hgb 12.5, Hct 39.5, MCV 82.5, MCH 26.1 L, MCHC 31.6 L, RDW Std Deviation 40.8, RDW Coeff of Charisse 13.8, Plt Count 242, MPV 12.9 H, Immature Gran % (Auto) 0.400, Neut % (Auto) 75.3 H, Lymph % (Auto) 19.4, [place] % (Auto) 4.3, Eos % (Auto) 0.3, Baso % (Auto) 0.3, Absolute Neuts (auto) 7.6, Absolute Lymphs (auto) 1.96, Nucleated RBC % 0, Platelet Estimate ADEQUATE, RBC Morphology NORM C+C, [place] Cells 3+ 12/19/19 19:12: Blood Type O POSITIVE, Antibody Screen NEGATIVE 12/20/19 05:55: WBC 8.6, RBC 3.59 L, Hgb 9.6 L, Hct 29.9 L, MCV 83.3, MCH 26.7 L , MCHC 32.1, RDW Std Deviation 41.6, RDW Coeff of Charisse 13.7, Plt Count 171, MPV 13.3 H Current Medications Acetaminophen (Tylenol Liquid) 1,000 mg PO Q6H [facility] Last Admin: 12/20/19 02:30 Dose: 1,000 mg Documented by: Bisacodyl (Dulcolax) 10 mg RECTAL UD PRN PRN Reason: If no BM Diphenhydramine HCl (Benadryl) 25 mg PO Q6H PRN PRN PRN Reason: ITCHING Stop: 12/20/19 22:03 Enoxaparin Sodium (Lovenox) 40 mg SC DAILY [facility] Hydrocortisone (Hytone) 1 applic TOPICAL TID PRN PRN; Protocol PRN Reason: Discomfort Lactated Ringer's () 1,000 mls @ 100 mls/hr IV .Q10H [facility] Last Admin: 12/20/19 02:10 Dose: 100 mls/hr Documented by: Naloxone HCl 4 mg/ Dextrose 504 mls @ 0 mls/hr IV .Q0M PRN; Protocol PRN Reason: Respiratory depression Cefazolin Sodium () 1 gm in 50 mls @ 150 mls/hr IV Q8H [facility] Stop: 12/20/19 11:19 Last Infusion: 12/20/19 03:50 Dose: Infused Documented by: Naloxone HCl 4 mg/ Dextrose 504 mls @ 0 mls/hr IV .Q0M PRN; Protocol PRN Reason: To maintain Resp. rate >10 Ibuprofen (Motrin) 600 mg PO Q6H [facility] Ketorolac Tromethamine (Toradol (Bkc)) 30 mg IV Q6H [facility] Stop: 12/20/19 21:01 Last Admin: 12/20/19 03:24 Dose: 30 mg Documented by: Methylergonovine Maleate (Methergine) 0.2 mg IM X1 PRN PRN Reason: Uterine Atony Nalbuphine HCl (Nubain) 5 mg IV Q3H PRN PRN PRN Reason: ITCHING Stop: 12/20/19 22:03 Naloxone HCl (Narcan) 0.02 mg IV Q1M PRN PRN Reason: RR <10 and pt unresponsive Naloxone HCl (Narcan) 0.02 mg IV Q1M PRN PRN Reason: RR< 10 AND PT UNRESPONSIVE Ondansetron HCl (Zofran) 4 mg IV Q4H PRN PRN PRN Reason: Nausea Oxycodone HCl (Oxyir) 5 mg PO Q4H PRN PRN PRN Reason: Pain Score 4-10/10 Prochlorperazine Edisylate (Compazine Iv) 10 mg IV Q6H PRN PRN PRN Reason: NAUSEA Senna/Docusate Sodium (Senokot-S, Adriana-Colace) 1 - 2 tablet PO DAILY [facility] Simethicone (Mylicon) 80 mg PO PCHS PRN PRN Reason: Indigestion/stomach pain Sodium Chloride () 5 - 15 ml IV UD PRN PRN Reason: SALINE FLUSH Ursodiol (Meng) 250 mg PO TID [facility] Last Admin: 12/20/19 05:46 Dose: 250 mg Documented by: Medical Necessity - Tobacco Use Smoking Status: Never smoker Assessment/Plan All Active Problems Previous delivery, delivered (Acute) 35 weeks gestation of (Acute) 37 weeks gestation of (Acute) Grand multipara (Acute) Advanced maternal age (AMA) in (Acute) A/P: POD#1 Repeat Section Pain well controlled with IV medication Later today plans to get ramirez catheter out and ambulate in room Surgical dressing CDI Stable dyad To continue /postop orders Hopes to discharge tomorrow
[2019-12-20] MEDS: 0.9% Saline Lock 10 ML Syringe IV ×3 (11:04→21:07)
[2019-12-20] MEDS: Senna/Docusate Sodium 1 Tablet PO (14:14)
[2019-12-21 01:25] VITALS: BP 118/52; PULSE 70; RESP 17; TEMP 36.8; O2SAT 98
[2019-12-21] MEDS: Acetaminophen 650 MG/20 ML UDC 1000 MG PO ×3 (02:15→14:42)
[2019-12-21] MEDS: Ibuprofen 100 MG/5 ML UDC 600 MG PO ×3 (03:01→15:28)
[2019-12-21] MEDS: Ursodiol 250 MG Tablet PO ×2 (06:25→14:42)
[2019-12-21 08:40] VITALS: BP 121/53; PULSE 76; RESP 16; TEMP 36.6
--- NOTE | 2019-12-21 11:05 | PN.OBGYN_ITS ---
Patient Problems: Active and Suspected Problems 37 weeks gestation of (Acute) Grand multipara (Acute) Advanced maternal age (AMA) in (Acute) Subjective: Patient without complaints. Tolerating diet well. Positive flatus. Minimal vaginal bleeding. Breast-feeding going well. Wants to go home today. Objective: Mepilex dressing in place with wound showing no evidence of infection, bleeding, or dampness. Good urine output. Hemoglobin okay. - Physical Exam Vitals/I&O's: Vital Signs Temp Pulse Resp BP Pulse Ox 98 F 76 16 121/53 H 98 12/21/19 08:40 12/21/19 08:40 12/21/19 08:40 12/21/19 08:40 12/21/19 01:25 Oxygen Delivery Method Room Air Weight: 209 lb 15.986 oz Body Mass Index (BMI) 37.2 Intake and Output for Last 24 Hours 12/19/19 12/20/19 12/21/19 23:59 23:59 23:59 Intake Total 2610 / 2610 1600 / 1600 Output Total 100 / 100 2850 / 2850 Balance 2510 / 2510 -1250 / -1250 Current Medications Acetaminophen (Tylenol Liquid) 1,000 mg PO Q6H [facility] Last Admin: 12/21/19 08:52 Dose: 1,000 mg Documented by: Bisacodyl (Dulcolax) 10 mg RECTAL UD PRN PRN Reason: If no BM Enoxaparin Sodium (Lovenox) 40 mg SC DAILY [facility] Last Admin: 12/21/19 10:24 Dose: Not Given Documented by: Hydrocortisone (Hytone) 1 applic TOPICAL TID PRN PRN; Protocol PRN Reason: Discomfort Naloxone HCl 4 mg/ Dextrose 504 mls @ 0 mls/hr IV .Q0M PRN; Protocol PRN Reason: Respiratory depression Naloxone HCl 4 mg/ Dextrose 504 mls @ 0 mls/hr IV .Q0M PRN; Protocol PRN Reason: To maintain Resp. rate >10 Ibuprofen (Motrin Liquid) 600 mg PO Q6H [facility] Last Admin: 12/21/19 08:55 Dose: 600 mg Documented by: Methylergonovine Maleate (Methergine) 0.2 mg IM X1 PRN PRN Reason: Uterine Atony Naloxone HCl (Narcan) 0.02 mg IV Q1M PRN PRN Reason: RR <10 and pt unresponsive Naloxone HCl (Narcan) 0.02 mg IV Q1M PRN PRN Reason: RR< 10 AND PT UNRESPONSIVE Ondansetron HCl (Zofran) 4 mg IV Q4H PRN PRN PRN Reason: Nausea Oxycodone HCl (Oxyir) 5 mg PO Q4H PRN PRN PRN Reason: Pain Score 4-10/10 Prochlorperazine Edisylate (Compazine Iv) 10 mg IV Q6H PRN PRN PRN Reason: NAUSEA Senna/Docusate Sodium (Senokot-S, Adriana-Colace) 1 - 2 tablet PO DAILY [facility] Last Admin: 12/21/19 10:24 Dose: Not Given Documented by: Simethicone (Mylicon) 80 mg PO PCHS PRN PRN Reason: Indigestion/stomach pain Sodium Chloride () 5 - 15 ml IV UD PRN PRN Reason: SALINE FLUSH Last Admin: 12/20/19 21:07 Dose: 10 ml Documented by: Ursodiol (Meng) 250 mg PO TID [facility] Last Admin: 12/21/19 06:25 Dose: 250 mg Documented by: Medical Necessity - Tobacco Use Smoking Status: Never smoker Assessment/Plan All Active Problems Previous delivery, delivered (Acute) 35 weeks gestation of (Acute) 37 weeks gestation of (Acute) Grand multipara (Acute) Advanced maternal age (AMA) in (Acute) Doing well postoperative day #2 status post repeat section. Will disc harge to home with routine instructions.
[2019-12-21] MEDS: oxyCODONE 5 MG Tablet PO ×2 (12:30→14:42)
[2019-12-21 14:45] VITALS: BP 119/59; PULSE 74; RESP 18; TEMP 36.9
== END 2019-12-21 18:30 | disposition home or self-care (01) | DRG 540 ==
LOC: WPOUT 20:07 → WP 20:07
PROVIDERS: Obstetrics & Gynecology; Admitting Provider Obstetrics & Gynecology; Visit Provider Obstetrics & Gynecology
DX: O34.211 Maternal care for low transverse scar from previous cesarean delivery (principal); Z3A.37 37 weeks gestation of pregnancy; O42.92 Full-term premature rupture of membranes, unspecified as to length of time between rupture and onset of labor; O69.2XX0 Labor and delivery complicated by other cord entanglement, with compression, not applicable or unspecified; Z37.0 Single live birth
CPT/HCPCS: 59025; 59050; 84112; 85025; 85027; 86850; 86900; 86901; 87635; 99218; G2023; J7120; A4216; G0378; J2405; U0003